=== PATIENT | male | born 1970 | race Caucasian/White ===

== ENCOUNTER → 2023-03-17 09:21 | Outpatient (CLI) | payer OTHER, SELFPAY ==
--- NOTE | 2023-03-17 09:25 | US_ITS ---
FINAL REPORT CLINICAL HISTORY: CIRRHOSIS COMPARISON: None FINDINGS: Sonographic images of the right upper quadrant were obtained. The pancreas is partially obscured. There is a nodular contour of the liver, and coarse hepatic echotexture compatible with a diagnosis of cirrhosis. The gallbladder appears normal without evidence of gallstones.There is no evidence of biliary ductal dilatation.The common duct measures 3.5 mm. The portal vein is dilated, measuring 16 mm in diameter, with normal directional flow. Limited images of the right kidney are unremarkable. IMPRESSION: Appearance of the liver is consistent with the clinical diagnosis of cirrhosis. The portal vein is dilated as described, with normal directional flow. Reviewed, Interpreted and Dictated by Lamin Pimentel III, MD Transcribed by Sharmin Poole Authenticated and [facility]
[2023-03-17 11:07] LABS: Basophils # 0.1 K/mm3 (0-0.2); Basophils % 0.8 % (0.1-2.0); Eosinophils # 0.3 K/mm3 (0.0-0.4); Hematocrit 34.2 % (42.0-52.0); Hemoglobin 11.5 g/dL (14.1-18.0); Lymphocytes # 1.9 K/mm3 (0.7-4.5); Mean Corpuscular HGB Conc 33.5 g/dL (31.8-35.4); Mean Corpuscular Volume 83.5 fl (80-94); Mean Platelet Volume 8.4 fl (7.4-10.4); Monocytes # 0.3 K/mm3 (0.1-1.0); Monocytes % 4.9 % (1.7-9.3); Neutrophils # 3.8 K/mm3 (1.8-7.8); Neutrophils % 59.4 % (37.0-80.0); Platelet Count 211 K/mm3 (142-424); Red Cell Distribution Width 17.4 % (11.5-17.5); White Blood Count 6.5 K/mm3 (4.8-10.8)
[2023-03-17 11:38] LABS: Ammonia 10 umol/L (9-30)
[2023-03-17 11:39] LABS: INR 1.06 (0.9-1.1); Prothrombin Time 11.4 seconds (10.1-12.5)
[2023-03-17 12:56] LABS: Alanine Aminotransferase 34 U/L (12-78); Albumin Level 4.1 g/dl (3.5-5.0); Albumin/Globulin Ratio 1.4 (1.1-1.8); Alkaline Phosphatase 74 U/L (38-126); Anion Gap 15.1 mEq/L (5-15); Aspartate Amino Transferase 31 U/L (17-59); Bilirubin,Total 0.4 mg/dl (0.2-1.3); Blood Urea Nitrogen 24 mg/dl (9-20); Calcium 9.2 mg/dl (8.4-10.2); Carbon Dioxide 24 mmol/L (22.0-30.0); Chloride 106 mmol/L (98-107); Estimated Glomerular Filt Rate 140 ml/min (>60); GFR (African American) 170 ML/MIN (>60); Globulin 2.9 g/dL (1.3-3.2); Glucose 85 mg/dl (74-100); Potassium 4.1 mmoL/L (3.5-5.1); Sodium 141 mmol/L (136-145)
[2023-03-17 13:36] LABS: Iron 71 ug/dL (49-181)
[2023-03-17 13:46] LABS: Total Iron Binding Capacity 326 ug/dL (261-462)
[2023-03-17 14:12] LABS: Ferritin 149 ng/ml (17.9-464)
[2023-03-18 14:34] LABS: Ceruloplasmin 23.6 mg/dL (16.0-31.0); Endomysial IgA Antibody Negative (Negative); HBsAg Screen Negative (Negative); HCV Ab Non Reactive (Non Reactive); Hep A Ab, IGM Negative (Negative); Hep B Core Ab, IgM Negative (Negative); Immunoglobulin A, Qn 282 mg/dL (90-386); Immunoglobulin G, Qn 1271 mg/dL (603-1613); Immunoglobulin M, Qn 48 mg/dL (20-172); Liver-Kidney Microsomal Ab <1.0 Units (0.0-20.0)
[2023-03-18 18:10] LABS: Actin (Smooth Muscle) Antibody 7 Units (0-19); Angiotensin Converting Enzyme 20 U/L (14-82); Deamidated Gliadin Abs, IgA 4 units (0-19); Deamidated Gliadin Abs, IgG 2 units (0-19); Mitochondrial (M2) Antibody <20.0 Units (0.0-20.0); Tissue Transglutaminase IgA Ab <2 U/mL (0-3); Tissue Transglutaminase IgG Ab 3 U/mL (0-5)
[2023-03-23 11:04] LABS: Reticulin IgA Antibody Negative titer (Neg:<1:2.5)
[2023-03-25 13:12] LABS: Alpha-1-Antitrypsin 156 mg/dL (101-187)
[2023-04-08 20:14] LABS: Steatosis Score 0.17
[2023-04-08 20:16] LABS: ALT (SGPT) P5P 29; AST (SGOT) P5P 25; Alpha 2-Macroglobulins, Qn 368; Apolipoprotein A-1 111; Bilirubin, Total 0.1; Cholesterol, Total 81; GGT 23; Glucose 82; Haptoglobin 127; Triglycerides 77
[2023-04-08 20:21] LABS: Antinuclear Antibodies (ANA) Negative
== END ==
LOC: RAD 09:21
PROVIDERS: PCP Family Medicine; Visit Provider Nurse Practitioner Family
DX: K74.60 Unspecified cirrhosis of liver (principal); K72.90 Hepatic failure, unspecified without coma; K76.0 Fatty (change of) liver, not elsewhere classified
CPT/HCPCS: 36415; 76705; 80053; 80074; 81256; 82103; 82104; 82140; 82164; 82390; 82728; 82784; 83516; 83540; 83550; 85025; 85610; 86038; 86225; 86235; 86255; 86256; 86376